=== PATIENT | female | born 1970 | race Hispanic/Latino ===

== ENCOUNTER → 2025-01-18 | Outpatient (CLI) | payer BC ==
[~2025-01-18] VITALS: Ht 147.3 cm; Wt 70.9 kg
[~2025-01-18] MED LIST: BIOTIN PO; GLIM2TAB30 PO; MILK THISTLE PO; MVI PO; SEMA2PEN SQ; VIT C PO; VIT D3 PO
[2025-01-18 10:18] LABS: BASOPHILS # (AUTO) 0.05 K/uL (0.00-0.20); BASOPHILS % (AUTO) 0.7 % (0.0-5.0); EOSINOPHILS # (AUTO) 0.06 K/uL (0.00-0.70); EOSINOPHILS % (AUTO) 0.8 % (0.0-8.0); HEMATOCRIT 43.3 % (36-48); IMMATURE GRANULOCYTE ABSOLUTE 0.01 K/uL (0-1); LYMPHOCYTES # (AUTO) 2.9 K/uL (1.0-4.8); LYMPHOCYTES % (AUTO) 41.2 % (21.0-51.0); MEAN CORPUSCULAR HEMOGLOBIN 29.8 pg (27.0-33.0); MEAN CORPUSCULAR HGB CONC 33.3 g/dL (32.0-36.0); MEAN CORPUSCULAR VOLUME 89.6 fL (79-99); MONOCYTES # (AUTO) 0.4 K/uL (0.1-1.0); NEUTROPHILS # (AUTO) 3.6 K/uL (1.8-7.7); NEUTROPHILS % (AUTO) 51.2 % (40.0-77.0); PLATELET COUNT (AUTO) 242 K/uL (130-400); RED BLOOD CELL COUNT(AUTO) 4.83 MIL/uL (4.00-5.50); RED CELL DISTRIBUTION WIDTH 12.7 % (11.0-15.5); WHITE BLOOD COUNT (AUTO) 7.1 K/uL (4.8-10.8)
[2025-01-18 10:26] LABS: CREATININE 0.8 mg/dL (0.5-1.0); POTASSIUM 4.5 mmol/L (3.5-5.1)
[2025-01-18 10:36] VITALS: BP 116/65; PULSE 58; RESP 14; TEMP 97.8
--- NOTE | 2025-01-18 14:52 | NUR ---
REPORT DR PALMA NOTIFIED PT TOOK OZEMPIC TODAY. OK TO PROCEED. PT WAS NOTIFIED BUT DECIDED TO CANCEL. SHE WILL NOTIFY OFFICE
== END | disposition home or self-care (01) ==
LOC: DAH 09:45 → EDSTATUS 11:00
PROVIDERS: ATTEND Obstetrics & Gynecology
DX: N85.00 Endometrial hyperplasia, unspecified (principal); N95.0 Postmenopausal bleeding
CPT/HCPCS: 80048; 84703; 85025; 36415; A6260